=== PATIENT | female | born 1970 | race Caucasian/White ===

== ENCOUNTER 2016-12-15 11:26 | Emergency (ER) | payer OTHER, MEDICAID ==
[2016-12-15] MEDS ORDERED: NS 1,000 ML IV ONE ×2 (14:10→15:31)
[2016-12-15] MEDS ORDERED: ONDANSETRON 4 MG/2 ML VIAL IVP ONE ×2 (14:10→15:31)
--- NOTE | 2016-12-15 14:13 | EDPHY ---
H & P Time Seen by Provider: 12/15/16 14:08 HPI/ROS: CHIEF COMPLAINT: Nausea, vomiting, diarrhea, abdominal pain HISTORY OF PRESENT ILLNESS: This patient is a 46 year old female with history of intractable epilepsy complaining of nausea, vomiting, diarrhea, and abdominal pain onset two nights ago. She has not been able to take her usual medications, Keppra and Lyrica, today. Yesterday, she developed nausea and diarrhea with associated abdominal cramping. She began vomiting began yesterday evening, and has not been able to stop. Associated with low grade fever. This morning, she developed cramping in her lower back as well. She denies recent antibiotic use. No ill contacts. REVIEW OF SYSTEMS: Constitutional: No fever, no chills Eyes: No visual changes ENT: No sore throat Respiratory: No cough, no shortness of breath Cardiac: No chest pain Gastrointestinal: No nausea, no vomiting, no abdominal pain Genitourinary: No hematuria, no dysuria Musculoskeletal: No leg pain or swelling Skin: No rash Neurological: No headache, no numbness, no weakness Psychiatric: No depression Past Medical/Surgical History: 1. Intractable epilepsy 2. Cholecystectomy 3. Fibromyalgia Social History: Lives in [place]. . Former smoker. Smoking Status: Former smoker Physical Exam: General Appearance: Alert, no distress Eyes: Pupils equal and round, no conjunctival pallor or injection ENT, Mouth: Mucous membranes moist Neck: Normal inspection Respiratory: Lungs are clear to auscultation Cardiovascular: Regular rate and rhythm. 2/6 systolic murmur. Gastrointestinal: Abdomen is soft and non- tender Neurological: A&O, nonfocal, normal gait Skin: Warm and dry, no rash Extremities: Nontender, no pedal edema Psychiatric: Mood and affect normal Constitutional: Initial Vital Signs Temperature (C) 37 C 12/15/16 11:38 Heart Rate 76 12/15/16 11:38 Respiratory Rate 18 12/15/16 11:38 Blood Pressure 122/70 H 12/15/16 11:38 O2 Sat (%) 96 12/15/16 11:38 O2 Delivery Mode Room Air Allergies/Adverse Reactions: lamotrigine [From Lamictal] Allergy (Severe, Verified 12/15/16 11:37) Unknown divalproex sodium [From Depakote] Allergy (Mild, Verified 12/15/16 11:37) Hives oxcarbazepine [From Trileptal] Allergy (Mild, Verified 12/15/16 11:37) Unknown Penicillins Allergy (Mild, Verified 12/15/16 11:37) Swelling/neck,face,throat Home Medications: Medication Instructions Recorded Keppra 09/09/09 LYRICA 03/24/14 EPINEPHrine [Epipen 0.3 MG (RX)] 0.3 mg IM ONCE PRN #1 syr 05/14/14 Buspar (*) 12/15/16 Ondansetron Odt [Zofran Odt 4 mg 4 mg PO Q4 PRN #6 tab 12/15/16 (*)] Viibryd 12/15/16 Medical Decision Making ED Course/Re-evaluation: The patient generally takes 2500mg Keppra bid but had not been able to today due to vomiting. Plan to administer 1gm IV Keppra for seizure prevention. IV normal saline 1 L IV and Zofran 4 mg IV given for nausea and vomiting. The patient continued to feel slightly nauseated after the initial IV Zofran so a 2nd dose of Zofran 4 mg IV given. Toradol 15 mg IV given for headache and abdominal cramping. The patient was able to tolerate ice chips well and feels better, wants to go home. Abdominal exam remains benign. Differential Diagnosis: Differential diagnosis includes though it is not limited to appendicitis, cholecystitis, diverticulitis, pyelonephritis, bowel perforation, small bowel obstruction. - Data Points Laboratory Results: Laboratory Results 12/15/16 14:00 12/15/16 14:00 12/15/16 12/15/16 14:00 14:00 WBC 6.08 10^3/uL 10^3/uL (3.80-9.50) RBC 4.15 10^6/uL L 10^6/uL (4.18-5.33) Hgb 13.0 g/dL g/dL (12.6-16.3) Hct 37.8 % L % (38.0-47.0) MCV 91.1 fL fL (81.5-99.8) MCH 31.3 pg pg (27.9-34.1) MCHC 34.4 g/dL g/dL (32.4-36.7) RDW 12.6 % % (11.5-15.2) Plt Count 252 10^3/uL 10^3/uL (150-400) MPV 9.4 fL fL (8.7-11.7) Neut % (Auto) 72.2 % % (39.3-74.2) Lymph % (Auto) 21.9 % % (15.0-45.0) Mcleod % (Auto) 3.8 % L % (4.5-13.0) Eos % (Auto) 1.2 % % (0.6-7.6) Baso % (Auto) 0.7 % % (0.3-1.7) Nucleat RBC Rel Count 0.0 % % (0.0-0.2) Absolute Neuts (auto) 4.40 10^3/uL 10^3/uL (1.70-6.50) Absolute Lymphs (auto) 1.33 10^3/uL 10^3/uL (1.00-3.00) Absolute Monos (auto) 0.23 10^3/uL L 10^3/uL (0.30-0.80) Absolute Eos (auto) 0.07 10^3/uL 10^3/uL (0.03-0.40) Absolute Basos (auto) 0.04 10^3/uL 10^3/uL (0.02-0.10) Absolute Nucleated RBC 0.00 10^3/uL 10^3/uL (0-0.01) Immature Gran % 0.2 % % (0.0-1.1) Immature Gran # 0.01 10^3/uL 10^3/uL (0.00-0.10) Sodium 140 mEq/L mEq/L (134-144) Potassium 4.2 mEq/L mEq/L (3.5-5.2) Chloride 110 mEq/L mEq/L (97-110) Carbon Dioxide 20 mEq/l L mEq/l (22-31) Anion Gap 10 mEq/L mEq/L (8-16) BUN 9 mg/dL mg/dL (7-23) Creatinine 0.6 mg/dL mg/dL (0.6-1.0) Estimated GFR > 60 Glucose 88 mg/dL mg/dL (70-100) Calcium 9.1 mg/dL mg/dL (8.5-10.4) Medications Given: Discontinued Medications Sodium Chloride (Ns) 1,000 mls @ 0 mls/hr IV EDNOW ONE; Wide Open PRN Reason: Protocol Stop: 12/15/16 14:11 Last Admin: 12/15/16 14:19 Dose: 1,000 mls Levetiracetam 1,000 mg/ Sodium (Chloride) 110 mls @ 440 mls/hr IV EDNOW ONE Stop: 12/15/16 14:38 Last Admin: 12/15/16 14:52 Dose: 110 mls Sodium Chloride (Ns) 1,000 mls @ 0 mls/hr IV ONCE ONE; Wide Open PRN Reason: Protocol Stop: 12/15/16 15:32 Last Admin: 12/15/16 15:44 Dose: 1,000 mls Ketorolac Tromethamine (Toradol) 15 mg IVP EDNOW ONE Stop: 12/15/16 15:32 Last Admin: 12/15/16 15:43 Dose: 15 mg Ondansetron HCl (Zofran) 4 mg IVP EDNOW ONE Stop: 12/15/16 14:11 Last Admin: 12/15/16 14:19 Dose: 4 mg Ondansetron HCl (Zofran) 4 mg IVP EDNOW ONE Stop: 12/15/16 15:32 Last Admin: 12/15/16 15:44 Dose: 4 mg Departure - Departure Disposition: Home, Routine, Self-Care Clinical Impression: Acute gastroenteritis Condition: Good Instructions: Gastroenteritis (ED) Additional Instructions: 1. Follow up with your primary care physician in the next 1-2 days. 2. Take Zofran as prescribed as needed for nausea. 3. Stay well hydrated. 4. Return for uncontrollable vomiting, diarrhea, worsening abdominal pain, fever , or other worsening of condition. Referrals: Nette Beebe MD [Medical Doctor] - As per Instructions Prescriptions: Ondansetron Odt [Zofran Odt 4 mg (*)] 4 mg PO Q4 PRN #6 tab PRN Reason: Nausea Report Scribed for: Heidi Daniels Report Scribed by: Griselda Bush Date of Report: 12/15/16 Time of Report: 14:11 Physician Review and Approval Statement: 12/15/16 14:11 Portions of this note were transcribed by a medical assisting program director. I personally performed a history, physical exam, medical decision making, and confirmed accuracy of information the transcribed note.
[2016-12-15] MEDS ORDERED: levETIRAcetam 1,000 MG in NS 100 ML IV ONE (14:24)
[2016-12-15 14:34] LABS: % IMMATURE GRANULYOCYTES 0.2 % (0.0-1.1); ABSOLUTE IMMATURE GRANULOCYTES 0.01 10^3/uL (0.00-0.10); ADD DIFF? NO; ADD MORPH? NO; ADD SCAN? NO; ATYPICAL LYMPHOCYTE FLAG 0 (0-99); FRAGMENT RBC FLAG 30 (0-99); HEMATOCRIT 37.8 % (38.0-47.0); LEFT SHIFT FLG 0 (0-99); LIPEMIA HEMOLYSIS FLAG 90 (0-99); MEAN CELL HEMOGLOBIN 31.3 pg (27.9-34.1); MEAN CELL HEMOGLOBIN CONCENTR. 34.4 g/dL (32.4-36.7); MEAN CELL VOLUME 91.1 fL (81.5-99.8); MEAN PLATELET VOLUME 9.4 fL (8.7-11.7); PLATELET CLUMPS FLAG 10 (0-99); PLATELET COUNT 252 10^3/uL (150-400); RED BLOOD CELL COUNT 4.15 10^6/uL (4.18-5.33); RED CELL DISTRIBUTION WIDTH 12.6 % (11.5-15.2)
[2016-12-15 14:39] LABS: ANION GAP 10 mEq/L (8-16); CALCIUM 9.1 mg/dL (8.5-10.4); CARBON DIOXIDE 20 mEq/l (22-31); CHLORIDE 110 mEq/L (97-110); CREATININE 0.6 mg/dL (0.6-1.0); GLOMERULAR FILTRATION RATE > 60; GLUCOSE 88 mg/dL (70-100); POTASSIUM 4.2 mEq/L (3.5-5.2); SODIUM 140 mEq/L (134-144)
[2016-12-15] MEDS ORDERED: KETOROLAC 15 MG/1 ML SDV IVP ONE (15:31)
[2016-12-15 16:24] VITALS: PULSE 68; RESP 20; O2SAT 95
[2016-12-15 16:25] VITALS: BP 133/78; TEMP 98.6
== END 2016-12-15 16:25 | disposition home or self-care (01) ==
DX: K52.9 Noninfective gastroenteritis and colitis, unspecified (principal); E86.9 Volume depletion, unspecified; Z87.891 Personal history of nicotine dependence; Z90.49 Acquired absence of other specified parts of digestive tract
CPT/HCPCS: 96361; 96365; 96375; 96376; 99284; J1885; J1953; J2405

== ENCOUNTER 2017-03-21 08:49 | Emergency (ER) | payer OTHER, MEDICAID ==
--- NOTE | 2017-03-21 08:57 | EDPHY ---
H & P Time Seen by Provider: 03/21/17 08:57 HPI/ROS: CHIEF COMPLAINT: Nausea and abdominal pain HISTORY OF PRESENT ILLNESS: The patient is a 46 y/o female arriving via EMS complaining of nausea and abdominal pain. She has a history of epilepsy, fibromyalgia, and a prior kidney stone surgery. Her pain is present throughout her abdomen, but worse in the lower left quadrant. She describes it as constant and dull. She has associated left flank pain and hot sweats. She denies dysuria , polyuria, diarrhea, constipation, and vomiting. She has not taken anything for her symptoms, but received Zofran en route. Her last seizure was about 3 weeks ago. She has had a mild cough recently since switching from Ativan to inhaled CBD under the direction of her neurologist. REVIEW OF SYSTEMS: A ten point review of systems was performed and is negative with the exception of the items mentioned in the HPI. Past medical history: Epilepsy with complex partial and absence seizures - Keppra 2500mg AM and 2000mg PMy, fibromyalgia Past surgical history: Cholecystectomy, kidney stone surgery Family history: Noncontributory Social history: Lives in [place]. . PCP: [facility]. Neurologist : Dr. Castro General Appearance: Alert. Vital signs reviewed. Eyes: Pupils equal and round, no conjunctival injection, no discharge. Anicteric. ENT, Mouth: Mucous membranes are moist, no oropharyngeal erythema or edema. Neck: No lymphadenopathy, supple. Respiratory: Lungs are clear to auscultation; no wheezes, rales, or rhonchi. Cardiovascular: Regular rate and rhythm; no murmur, rub, or gallop. Gastrointestinal: Abdomen is soft, LLQ tenderness without guarding, no masses or organomegaly, bowel sounds normal. Skin: Warm and dry, no rashes on exposed skin, normal color. Back: Nontender to palpation over the thoracolumbar spine. Mild left CVAT. Extremities: No lower extremity edema, no calf tenderness or swelling. Neurological: Alert and oriented. Moving all four extremities easily and equally. Psychiatric: Normal affect. - Personal History Tetanus Vaccine Date: 2 YEARS AGO - Medical/Surgical History Hx Asthma: No Hx Chronic Respiratory Disease: No Hx Diabetes: No Hx Cardiac Disease: No Hx Renal Disease: No Hx Cirrhosis: No Hx Alcoholism: No Hx HIV/AIDS: No Hx Splenectomy or Spleen Trauma: No Other PMH: INTRACTABLE EPILEPSY, CHOLECYSTECTOMY - Social History Smoking Status: Former smoker Constitutional: Initial Vital Signs Temperature (C) 37 C 03/21/17 08:58 Heart Rate 62 03/21/17 08:58 Respiratory Rate 16 03/21/17 08:58 Blood Pressure 124/73 H 03/21/17 08:58 O2 Sat (%) 99 03/21/17 08:58 O2 Delivery Mode Room Air Allergies/Adverse Reactions: lamotrigine [From Lamictal] Allergy (Severe, Verified 12/15/16 11:37) Unknown divalproex sodium [From Depakote] Allergy (Mild, Verified 12/15/16 11:37) Hives oxcarbazepine [From Trileptal] Allergy (Mild, Verified 12/15/16 11:37) Unknown Penicillins Allergy (Mild, Verified 12/15/16 11:37) Swelling/neck,face,throat Home Medications: Medication Instructions Recorded Keppra 09/09/09 LYRICA 03/24/14 EPINEPHrine [Epipen 0.3 MG (RX)] 0.3 mg IM ONCE PRN #1 syr 05/14/14 Buspar (*) 12/15/16 Ondansetron Odt [Zofran Odt 4 mg 4 mg PO Q4 PRN #6 tab 12/15/16 (*)] Viibryd 12/15/16 Ondansetron Odt [Zofran Odt 4 mg 4 mg PO Q4 PRN #10 tab 03/21/17 (RX)] Medical Decision Making - Diagnostics Imaging: Discussed imaging studies w/ milled rice broker Radiologist ED Course/Re-evaluation: This is a 46 y/o female who presents with LLQ and left flank tenderness. She has declined pain medication. IV established. Labs and UA ordered. 1L IV NS administered. 0957: Reassessed patient. Her pain is more on her left flank now. Her nausea is about the same. She has been unable to provide a urine sample yet. 1029: UA is normal. 15mg IV Toradol administered for pain. Pelvic US ordered. 1111: 0.5mg IV Dilaudid and 4mg IV Zofran administered. White blood cell count is normal. Urinalysis does not show evidence of an infection. She does not have blood in her urine and although this does not rule out a kidney stone, the nature of her pain is not suggestive of ureterolithiasis. I do not suspect diverticulitis. 1223: Reassessed patient. She is feeling improved. US results pending. 1329: Reassessed patient. She has a small right ovarian cyst that is unlikely to be causing her symptoms as her pain has been primarily on the left. She is feeling much better and has been able to tolerate PO fluids without difficulty. She feels ready to go home. I've recommended following up [place] [facility] [place] She agrees with this plan. Strict return precautions discussed. - Data Points Laboratory Results: Laboratory Results 03/21/17 Unknown 03/21/17 Unknown Medications Given: Discontinued Medications Hydromorphone HCl (Dilaudid) 0.5 mg IVP EDNOW ONE Stop: 03/21/17 11:11 Last Admin: 03/21/17 11:13 Dose: 0.5 mg Sodium Chloride (Ns) 1,000 mls @ 0 mls/hr IV EDNOW ONE; Wide Open PRN Reason: Protocol Stop: 03/21/17 09:10 Last Admin: 03/21/17 09:24 Dose: 1,000 mls Ketorolac Tromethamine (Toradol) 15 mg IVP EDNOW ONE Stop: 03/21/17 10:29 Last Admin: 03/21/17 10:31 Dose: 15 mg Ondansetron HCl (Zofran) 4 mg IVP EDNOW ONE Stop: 03/21/17 11:22 Last Admin: 03/21/17 11:23 Dose: 4 mg Ondansetron HCl (Zofran) 4 mg IVP EDNOW ONE Stop: 03/21/17 13:34 Last Admin: 03/21/17 13:40 Dose: 4 mg Departure - Departure Disposition: Home, Routine, Self-Care Clinical Impression: Right ovarian cyst Abdominal pain Qualifiers: Abdominal location: left lower quadrant Qualified Code(s): R10.32 - Left lower quadrant pain Condition: Good Instructions: Ondansetron (By mouth), Acute Abdominal Pain (ED) Additional Instructions: 1. Take Zofran as prescribed when needed for nausea or vomiting. 2. Follow up with your primary care provider this week. 3. Return to the ED for pain that moves to a different location, uncontrollable vomiting, fever, lightheadedness, or other worsening of condition. Referrals: [facility] [Outside] - As per Instructions Prescriptions: Ondansetron Odt [Zofran Odt 4 mg (RX)] 4 mg PO Q4 PRN #10 tab PRN Reason: nausea Report Scribed for: Susanna Warner Report Scribed by: Miriam Ellis Date of Report: 03/21/17 Time of Report: 09:06 Physician Review and Approval Statement: 03/21/17 08:57 Portions of this note were transcribed by the medical practitioners. I, Dr. Susanna Warner, personally performed the history, physical exam, and medical decision- making; and confirmed the accuracy of the information in the transcribed note.
[2017-03-21 09:00] VITALS: TEMP 98.6
[2017-03-21] MEDS ORDERED: NS 1,000 ML IV ONE (09:09)
[2017-03-21 09:13] LABS: % IMMATURE GRANULYOCYTES 0.2 % (0.0-1.1); ABSOLUTE IMMATURE GRANULOCYTES 0.01 10^3/uL (0.00-0.10); ADD DIFF? NO; ADD MORPH? NO; ADD SCAN? NO; ATYPICAL LYMPHOCYTE FLAG 10 (0-99); FRAGMENT RBC FLAG 0 (0-99); HEMATOCRIT 42.6 % (38.0-47.0); HEMOGLOBIN 14.8 g/dL (12.6-16.3); LEFT SHIFT FLG 0 (0-99); LIPEMIA HEMOLYSIS FLAG 90 (0-99); MEAN CELL HEMOGLOBIN 31.1 pg (27.9-34.1); MEAN CELL HEMOGLOBIN CONCENTR. 34.7 g/dL (32.4-36.7); MEAN CELL VOLUME 89.5 fL (81.5-99.8); MEAN PLATELET VOLUME 8.8 fL (8.7-11.7); PLATELET CLUMPS FLAG 20 (0-99); PLATELET COUNT 235 10^3/uL (150-400); RED BLOOD CELL COUNT 4.76 10^6/uL (4.18-5.33); RED CELL DISTRIBUTION WIDTH 12.4 % (11.5-15.2)
[2017-03-21 09:21] LABS: ANION GAP 14 mEq/L (8-16); CALCIUM 9.7 mg/dL (8.5-10.4); CARBON DIOXIDE 22 mEq/l (22-31); CHLORIDE 108 mEq/L (97-110); CREATININE 0.6 mg/dL (0.6-1.0); GLOMERULAR FILTRATION RATE > 60; GLUCOSE 108 mg/dL (70-100); POTASSIUM 3.9 mEq/L (3.5-5.2); SODIUM 144 mEq/L (134-144)
[2017-03-21] MEDS ORDERED: KETOROLAC 15 MG/1 ML SDV IVP ONE (10:28)
[2017-03-21 10:48] LABS: COLOR YELLOW; LEUKOCYTE ESTERASE,URINE NEGATIVE (NEGATIVE); NITRITE,URINE NEGATIVE (NEGATIVE)
[2017-03-21] MEDS ORDERED: HYDROmorphONE/DILAUDID 1 MG/ML INJ IVP ONE (11:10)
[2017-03-21] MEDS ORDERED: ONDANSETRON 4 MG/2 ML VIAL IVP ONE ×2 (11:21→13:33)
[2017-03-21 13:23] VITALS: BP 102/60; PULSE 73; RESP 16; O2SAT 96
== END 2017-03-21 13:53 | disposition home or self-care (01) ==
LOC: EDUNIT#
DX: N83.201 Unspecified ovarian cyst, right side (principal); E86.9 Volume depletion, unspecified; Z87.891 Personal history of nicotine dependence; Z90.49 Acquired absence of other specified parts of digestive tract
CPT/HCPCS: 76856; 96361; 96374; 96375; 96376; 99285; J1170; J1885; J2405

== ENCOUNTER 2017-04-03 21:58 | Emergency (ER) | payer OTHER, MEDICAID ==
[2017-04-03] MEDS ORDERED: NS 1,000 ML IV ONE (22:23)
[2017-04-03] MEDS ORDERED: ONDANSETRON 4 MG/2 ML VIAL IVP ONE (22:23)
[2017-04-03] MEDS ORDERED: LIDOCAINE 1% 100 MG in NS 100 ML IV ONE (22:24)
--- NOTE | 2017-04-03 22:27 | EDPHY ---
H & P Stated Complaint: abd pain Time Seen by Provider: 04/03/17 22:08 HPI/ROS: HPI The patient presents with abdominal pain which has been present for the last 4 hours and started slowly. It is in her right lower quadrant and radiates deep into her pelvis. It is associated with a feeling of dizziness and fatigue. At about 5:30 p.m., she took ibuprofen 600 mg without any improvement in her symptoms. She says she finished her menses about 2 days ago. She denies any vaginal discharge. She says the pain feels similar to when she was seen in the emergency department on March 21. Then she was diagnosed with a small right-sided ovarian cyst with an otherwise normal workup. She said the pain at that time lasted for about 5 days and then spontaneously improved. She does not have any fevers, nausea, vomiting, diarrhea, dysuria, hematuria. She had a normal bowel movement earlier today. She is followed by a primary care doctor, though does not have an OBGYN.. REVIEW OF SYSTEMS Constitutional: No fever, no chills. Eyes: No discharge. ENT: No sore throat. Cardiovascular: No chest pain, no palpitations. Respiratory: No cough, no shortness of breath. Gastrointestinal: Positive for abdominal pain, no vomiting. Genitourinary: No hematuria. Musculoskeletal: No back pain. Skin: No rashes. Neurological: No headache. PMHx: Epilepsy, fibromyalgia, status post cholecystectomy, recent visit for abdominal pain Soc Hx: Here with her PHYSICAL General Appearance: Alert, no distress Eyes: Pupils equal and round no pallor or injection ENT, Mouth: Mucous membranes moist Respiratory: There are no retractions, lungs are clear to auscultation Cardiovascular: Regular rate and rhythm Gastrointestinal: Abdomen is soft with tenderness in the right lower quadrant with voluntary guarding Neurological: A&O, moves all extremities Skin: Warm and dry, no rashes Musculoskeletal: Neck is supple non tender Extremities: symmetrical, full range of motion Psychiatric: Patient is oriented X 3, there is no agitation Source: Patient, Old records Exam Limitations: No limitations - Personal History LMP (Females 10-55): 1-7 Days Ago Current Tetanus/Diphtheria Vaccine: Yes Current Tetanus Diphtheria and Acellular Pertussis (TDAP): Yes Tetanus Vaccine Date: 2 YEARS AGO - Medical/Surgical History Hx Asthma: No Hx Chronic Respiratory Disease: No Hx Diabetes: No Hx Cardiac Disease: No Hx Renal Disease: No Hx Cirrhosis: No Hx Alcoholism: No Hx HIV/AIDS: No Hx Splenectomy or Spleen Trauma: No Other PMH: INTRACTABLE EPILEPSY, CHOLECYSTECTOMY - Social History Smoking Status: Former smoker Constitutional: Initial Vital Signs Temperature (C) 37 C 04/03/17 22:00 Heart Rate 70 04/03/17 22:00 Respiratory Rate 16 04/03/17 22:00 Blood Pressure 105/60 04/03/17 22:00 O2 Sat (%) 96 04/03/17 22:00 O2 Delivery Mode Room Air Allergies/Adverse Reactions: lamotrigine [From Lamictal] Allergy (Severe, Verified 12/15/16 11:37) Unknown divalproex sodium [From Depakote] Allergy (Mild, Verified 12/15/16 11:37) Hives oxcarbazepine [From Trileptal] Allergy (Mild, Verified 12/15/16 11:37) Unknown Penicillins Allergy (Mild, Verified 12/15/16 11:37) Swelling/neck,face,throat Home Medications: Medication Instructions Recorded Keppra 09/09/09 LYRICA 03/24/14 EPINEPHrine [Epipen 0.3 MG (RX)] 0.3 mg IM ONCE PRN #1 syr 05/14/14 Buspar (*) 12/15/16 Ondansetron Odt [Zofran Odt 4 mg 4 mg PO Q4 PRN #6 tab 12/15/16 (*)] Viibryd 12/15/16 Ondansetron Odt [Zofran Odt 4 mg 4 mg PO Q4 PRN #10 tab 03/21/17 (RX)] Medical Decision Making - Diagnostics Imaging Results: Imaging Impressions Pelvic/Renal Ultrasound 04/03/17 22:23 Impression: 1. Normal ovaries. No ovarian cyst, free fluid, or torsion. 2. Well positioned intrauterine device. Findings discussed with Emergency Department physician, Deandra Mariano MD at 04/03/2017 23:46. Differential Diagnosis: 46-year-old female with fibromyalgia, epilepsy, status post cholecystectomy presents with several hours of right lower quadrant abdominal pain associated with dizziness with radiates to her pelvis. Recent visit demonstrated small right-sided ovarian cyst. Differential diagnosis includes large ovarian cyst, ovarian torsion, ruptured ovarian cyst, less likely appendicitis. In the emergency department, the patient was monitored for several hours. She had some improvement in her pain with pain medication and antiemetics. She was given IV fluids for presumed volume depletion. She also had basic lab testing which was unremarkable. Ultrasound was performed and demonstrated no ovarian cyst. I have explained these results to the patient. I am not worried about appendicitis given that she has no leukocytosis, vomiting, fever. The cause of the patient's pain is not clear at this point. Constipation is a consideration, however she is having normal bowel movements. I have explained to her that there is diagnostic uncertainty and because of this she should have a low threshold to return to the emergency department. I will give her follow- up information for OBGYN as well given the cyclical lower abdominal pain. She is in agreement with this plan. She will get a dose of Toradol before she is discharged. - Data Points Laboratory Results: Laboratory Results 04/03/17 22:18 04/03/17 22:18 04/03/17 04/03/17 04/03/17 22:18 22:18 22:18 WBC 5.88 10^3/uL 10^3/uL (3.80-9.50) RBC 4.29 10^6/uL 10^6/uL (4.18-5.33) Hgb 13.4 g/dL g/dL (12.6-16.3) Hct 38.8 % % (38.0-47.0) MCV 90.4 fL fL (81.5-99.8) MCH 31.2 pg pg (27.9-34.1) MCHC 34.5 g/dL g/dL (32.4-36.7) RDW 12.5 % % (11.5-15.2) Plt Count 245 10^3/uL 10^3/uL (150-400) MPV 8.6 fL L fL (8.7-11.7) Neut % (Auto) 44.8 % % (39.3-74.2) Lymph % (Auto) 39.8 % % (15.0-45.0) Patrick % (Auto) 5.4 % % (4.5-13.0) Eos % (Auto) 8.8 % H % (0.6-7.6) Baso % (Auto) 1.2 % % (0.3-1.7) Nucleat RBC Rel Count 0.0 % % (0.0-0.2) Absolute Neuts (auto) 2.63 10^3/uL 10^3/uL (1.70-6.50) Absolute Lymphs (auto) 2.34 10^3/uL 10^3/uL (1.00-3.00) Absolute Monos (auto) 0.32 10^3/uL 10^3/uL (0.30-0.80) Absolute Eos (auto) 0.52 10^3/uL H 10^3/uL (0.03-0.40) Absolute Basos (auto) 0.07 10^3/uL 10^3/uL (0.02-0.10) Absolute Nucleated RBC 0.00 10^3/uL 10^3/uL (0-0.01) Immature Gran % 0.0 % % (0.0-1.1) Immature Gran # 0.00 10^3/uL 10^3/uL (0.00-0.10) Sodium 139 mEq/L mEq/L (134-144) Potassium 3.7 mEq/L mEq/L (3.5-5.2) Chloride 102 mEq/L mEq/L (97-110) Carbon Dioxide 23 mEq/l mEq/l (22-31) Anion Gap 14 mEq/L mEq/L (8-16) BUN 8 mg/dL mg/dL (7-23) Creatinine 0.7 mg/dL mg/dL (0.6-1.0) Estimated GFR > 60 Glucose 108 mg/dL H mg/dL (70-100) Calcium 9.4 mg/dL mg/dL (8.5-10.4) Beta HCG, Qual NEGATIVE Medications Given: Discontinued Medications Sodium Chloride (Ns) 1,000 mls @ 0 mls/hr IV EDNOW ONE; Wide Open PRN Reason: Protocol Stop: 04/03/17 22:24 Last Admin: 04/03/17 23:02 Dose: 1,000 mls Lidocaine HCl 100 mg/ Sodium (Chloride) 110 mls @ 600 mls/hr IV EDNOW ONE Stop: 04/03/17 22:34 Last Admin: 04/03/17 23:01 Dose: 110 mls Ketamine HCl (Ketamine) 12.7 mg 0.2 mg/kg (12.7 mg) IVP EDNOW ONE Stop: 04/03/17 23:44 Last Admin: 04/04/17 00:02 Dose: Not Given Ketorolac Tromethamine (Toradol) 15 mg IVP EDNOW ONE Stop: 04/04/17 00:26 Last Admin: 04/04/17 00:27 Dose: 15 mg Ketorolac Tromethamine (Toradol) 15 mg IVP EDNOW ONE Stop: 04/04/17 00:14 Last Admin: 04/04/17 00:39 Dose: Not Given Ondansetron HCl (Zofran) 4 mg IVP EDNOW ONE Stop: 04/03/17 22:24 Last Admin: 04/03/17 23:02 Dose: 4 mg Departure - Departure Disposition: Home, Routine, Self-Care Clinical Impression: Lower abdominal pain Condition: Good Instructions: Abdominal Pain (ED) Additional Instructions: The cause of your pain is not entirely clear. Your ultrasound was normal today. If your pain becomes severe, associated with vomiting or fever, you should return to the emergency department. Otherwise I recommend that you take ibuprofen 600 mg with acetaminophen 650 mg every 6 hours as needed for pain. You can use an ice pack or heat if that helps. I have also referred you to an process chemist if you would like to see a specialist for this pain. You can follow up with your primary care doctor as well. Referrals: Jania Gar PA [Primary Care Provider] - As per Instructions Bri Perdomo MD [Medical Doctor] - As per Instructions
[2017-04-03 22:28] LABS: ADD DIFF? NO; ADD MORPH? NO; ADD SCAN? NO; ATYPICAL LYMPHOCYTE FLAG 0 (0-99); FRAGMENT RBC FLAG 0 (0-99); HEMATOCRIT 38.8 % (38.0-47.0); HEMOGLOBIN 13.4 g/dL (12.6-16.3); LEFT SHIFT FLG 0 (0-99); LIPEMIA HEMOLYSIS FLAG 90 (0-99); MEAN CELL HEMOGLOBIN 31.2 pg (27.9-34.1); MEAN CELL HEMOGLOBIN CONCENTR. 34.5 g/dL (32.4-36.7); MEAN CELL VOLUME 90.4 fL (81.5-99.8); MEAN PLATELET VOLUME 8.6 fL (8.7-11.7); PLATELET CLUMPS FLAG 0 (0-99); PLATELET COUNT 245 10^3/uL (150-400); RED BLOOD CELL COUNT 4.29 10^6/uL (4.18-5.33); RED CELL DISTRIBUTION WIDTH 12.5 % (11.5-15.2)
[2017-04-03 22:40] LABS: ANION GAP 14 mEq/L (8-16); CALCIUM 9.4 mg/dL (8.5-10.4); CARBON DIOXIDE 23 mEq/l (22-31); CHLORIDE 102 mEq/L (97-110); CREATININE 0.7 mg/dL (0.6-1.0); GLOMERULAR FILTRATION RATE > 60; GLUCOSE 108 mg/dL (70-100); POTASSIUM 3.7 mEq/L (3.5-5.2); SODIUM 139 mEq/L (134-144)
[2017-04-03] MEDS ORDERED: ONDANSETRON 4 MG/2 ML VIAL ONE (22:59)
[2017-04-03] MEDS ORDERED: KETAMINE 100 MG/10 ML SYR IVP ONE (23:43)
[2017-04-04] MEDS ORDERED: KETOROLAC 15 MG/1 ML SDV IVP ONE ×2 (00:13→00:25)
[2017-04-04] MEDS ORDERED: KETOROLAC 15 MG/1 ML SDV ONE (00:16)
[2017-04-04 00:36] VITALS: BP 101/59; PULSE 61; RESP 15; TEMP 97.9; O2SAT 97
== END 2017-04-04 00:40 | disposition home or self-care (01) ==
DX: R10.31 Right lower quadrant pain (principal); E86.9 Volume depletion, unspecified; Z90.49 Acquired absence of other specified parts of digestive tract; Z87.891 Personal history of nicotine dependence
CPT/HCPCS: 76856; J1885; J2405; 96365

== ENCOUNTER 2017-04-19 14:52 | Emergency (ER) | payer OTHER, MEDICAID ==
[2017-04-19 14:58] VITALS: RESP 16
--- NOTE | 2017-04-19 15:51 | EDPHY ---
H & P Stated Complaint: r sided abd/pelvic pain x 1 month/dx ovarian cyst/not resolving Time Seen by Provider: 04/19/17 15:51 HPI/ROS: HPI: This is a 46-year-old female presents with Chief Complaint: r sided abd/pelvic pain x 1 month/dx ovarian cyst/not resolving Location: Lower abdominal/pelvic Quality: Pain Duration: 1 month Signs and Symptoms: no fever, no nausea, no vomiting, no hematemesis, no blood in stool, no abdominal bloating, no diarrhea, no back pain, no urinary symptoms , no testicular/groin pain, no indigestion, no chest pain, no shortness of breath Timing: Sudden, constant, waxes and wanes Severity: Moderate to severe Context: Patient reports that she has had over a month of lower abdominal moderate to severe constant, radiating to the back pain. Due to the pain she has decreased appetite accompanied by nausea. She reports that she was in the ER over 1 month ago for the same symptoms. At that time they found an ovarian cyst. She followed up with a primary care provider 1 week later who ordered the CT abdomen and pelvis scan that showed that the cyst had resolved per patient and no other abnormalities. She says that the pain went away but has returned over the last week. Denies vomiting. Patient reports that she had diarrhea yesterday. She is passing flatus. Has an IUD. LMP 1-2 weeks ago. Last pelvic exam 1-2 weeks ago with PCP including Pap smear which was normal per patient. Denies any recent sexual activity in the last 2 months. Denies dyspareunia/vaginal bleeding/vaginal discharge. Denies urinary symptoms. Denies fevers, chills, blood in stool. She has not traveled outside the country or drink any water while camping. Modifying Factors: None Comment: ROS: see HPI Constitutional: No fever, no chills, no weight loss Eyes: No blurred vision Respiratory: No shortness of breath, no cough Cardiovascular: No chest pain, no palpitations Gastrointestinal: + nausea, no vomiting, no diarrhea, no hematemesis, no blood in stool Genitourinary: No dysuria, no blood in urine Extremities: No myalgias, no edema Neurologic: No weakness, no numbness Skin: No rashes, no petechiae Hematologic: No bruising, no bleeding MEDICAL/SURGICAL/SOCIAL HISTORY: Medical history: INTRACTABLE EPILEPSY Surgical history: CHOLECYSTECTOMY Social history: Employed. CONSTITUTIONAL: Pleasant, nontoxic-appearing white female, awake and alert, no obvious distress HEENT: Atraumatic and normocephalic, PERRL, EOMI. Tympanic membranes clear. Oropharynx clear, no exudate and moist pink mucosa. Airway patent. No lymphadenopathy. No meningismus. Cardiovascular: Normal S1/S2, regular rate, regular rhythm, without murmur rub or gallop. PULMONARY/CHEST: Symmetrical and nontender. Clear to auscultation bilaterally. Good air movement. No accessory muscle usage. ABDOMEN: Soft, nondistended, lower abdominal moderate tenderness, no rebound, no guarding, no peritoneal signs, no masses or organomegaly. No CVAT. EXTREMITIES: 2/2 pulses, strength 5/5, no deformities, no clubbing, no cyanosis or edema. NEUROLOGICAL: no focal neuro deficits. GCS 15. SKIN: Warm and dry, no erythema. no rash. Good capillary refill. Source: Patient Exam Limitations: No limitations - Personal History LMP (Females 10-55): 8-14 Days Ago Current Tetanus/Diphtheria Vaccine: Yes Tetanus Vaccine Date: 2 YEARS AGO - Medical/Surgical History Hx Asthma: No Hx Chronic Respiratory Disease: No Hx Diabetes: No Hx Cardiac Disease: No Hx Renal Disease: No Hx Cirrhosis: No Hx Alcoholism: No Hx HIV/AIDS: No Hx Splenectomy or Spleen Trauma: No Other PMH: INTRACTABLE EPILEPSY, CHOLECYSTECTOMY - Social History Smoking Status: Former smoker Constitutional: Initial Vital Signs Temperature (C) 36.9 C 04/19/17 14:55 Heart Rate 72 04/19/17 14:55 Respiratory Rate 16 04/19/17 14:55 Blood Pressure 106/80 04/19/17 14:55 O2 Sat (%) 97 04/19/17 14:55 O2 Delivery Mode Room Air Allergies/Adverse Reactions: lamotrigine [From Lamictal] Allergy (Severe, Verified 04/19/17 14:55) Unknown divalproex sodium [From Depakote] Allergy (Mild, Verified 04/19/17 14:55) Hives oxcarbazepine [From Trileptal] Allergy (Mild, Verified 04/19/17 14:55) Unknown Penicillins Allergy (Mild, Verified 04/19/17 14:55) Swelling/neck,face,throat Home Medications: Medication Instructions Recorded Keppra 09/09/09 LYRICA 03/24/14 EPINEPHrine [Epipen 0.3 MG (RX)] 0.3 mg IM ONCE PRN #1 syr 05/14/14 Buspar (*) 12/15/16 Ondansetron Odt [Zofran Odt 4 mg 4 mg PO Q4 PRN #6 tab 12/15/16 (*)] Viibryd 12/15/16 Ondansetron Odt [Zofran Odt 4 mg 4 mg PO Q4 PRN #10 tab 03/21/17 (RX)] Dicyclomine [Bentyl 10 MG (*)] 10 mg PO QID PRN #12 cap 04/19/17 Polyethylene Glycol 3350 [Miralax 17 gm PO DAILY #10 pkt 04/19/17 17 gm (*)] Medical Decision Making - Diagnostics Imaging Results: Imaging Impressions Abdomen CT 04/19/17 16:05 Impression: 1. Status post cholecystectomy with mild intra and extrahepatic biliary ductal prominence, similar to a study in 2015, likely reflecting a reservoir-type effect. 2. Nonobstructive left nephrolithiasis with some cortical scarring along the posterior [id number] interpolar region of the left kidney, and trace subcapsular fluid but no hydronephrosis. 3. Moderate constipation. 4. Appropriately-positioned intrauterine device. 5. There is no adnexal mass or free fluid. Findings were discussed with Sveta Glover PA-C at 17:59, on 04/19/2017. ED Course/Re-evaluation: Labs, IV fluids, IV medications, CT abdomen and pelvis scan ordered Chart review shows that pelvic ultrasound on 04/03/2017 showed an IUD in place and no other abnormalities. CT abdomen and pelvis scan showed 2.4 cm left adnexal cyst with diffuse mild colonic thickening that was questionable for colitis at that time. Patient is nontoxic in appearance and afebrile. No lactic acidosis. Given 1 L normal saline and IV Zofran Urinalysis shows no signs of infection Discussed pelvic exam with patient who is adamant that we do not perform in the emergency room as she had a pelvic performed approximately 1-2 weeks ago. She feels that the symptoms are not related and does not require another pelvic exam. She denies being currently sexually active. 1802: Called by radiologist who advised that CT abdomen and pelvis scan shows moderate constipation, IUD in place, no cyst from prior CT seen, status post cholecystectomy, no signs of appendicitis, colitis, obstruction, diverticulitis. This patient was seen under the supervision of my secondary supervising physician. I evaluated care for this patient independently. Patient's presentation, labs/imaging, treatment and plan of care were discussed with secondary supervising physician. Differential Diagnosis: Abdominal pain in a female including but not limited to ovarian cyst, pelvic inflammatory disease, ovarian torsion, urinary tract infection, and appendicitis. - Data Points Laboratory Results: Laboratory Results 04/19/17 15:57 04/19/17 15:57 04/19/17 04/19/17 04/19/17 17:35 17:30 15:57 WBC RBC Hgb Hct MCV MCH MCHC RDW Plt Count MPV Neut % (Auto) Lymph % (Auto) [place] % (Auto) Eos % (Auto) Baso % (Auto) Nucleat RBC Rel Count Absolute Neuts (auto) Absolute Lymphs (auto) Absolute Monos (auto) Absolute Eos (auto) Absolute Basos (auto) Absolute Nucleated RBC Immature Gran % Immature Gran # VBG Lactic Acid 0.6 mmol/L L mmol/L (0.7-2.1) Sodium Potassium Chloride Carbon Dioxide Anion Gap BUN Creatinine Estimated GFR Glucose Calcium Total Bilirubin Conjugated Bilirubin Unconjugated Bilirubin AST ALT Alkaline Phosphatase Total Protein Albumin Lipase Beta HCG, Qual NEGATIVE Urine Color PALE YELLOW Urine Appearance CLEAR Urine pH 6.0 (5.0-7.5) Ur Specific [place] 1.032 H (1.002-1.030) Urine Protein NEGATIVE (NEGATIVE) Urine Ketones NEGATIVE (NEGATIVE) Urine Blood NEGATIVE (NEGATIVE) Urine Nitrate NEGATIVE (NEGATIVE) Urine Bilirubin NEGATIVE (NEGATIVE) Urine Urobilinogen NEGATIVE EU EU (0.2-1.0) Ur Leukocyte Esterase NEGATIVE (NEGATIVE) Urine Glucose NEGATIVE (NEGATIVE) 04/19/17 04/19/17 15:57 15:57 WBC 2.47 10^3/uL L 10^3/uL (3.80-9.50) RBC 4.27 10^6/uL 10^6/uL (4.18-5.33) Hgb 13.4 g/dL g/dL (12.6-16.3) Hct 38.2 % % (38.0-47.0) MCV 89.5 fL fL (81.5-99.8) MCH 31.4 pg pg (27.9-34.1) MCHC 35.1 g/dL g/dL (32.4-36.7) RDW 12.8 % % (11.5-15.2) Plt Count 181 10^3/uL 10^3/uL (150-400) MPV 8.8 fL fL (8.7-11.7) Neut % (Auto) 51.5 % % (39.3-74.2) Lymph % (Auto) 35.2 % % (15.0-45.0) [place] % (Auto) 9.3 % % (4.5-13.0) Eos % (Auto) 3.2 % % (0.6-7.6) Baso % (Auto) 0.4 % % (0.3-1.7) Nucleat RBC Rel Count 0.0 % % (0.0-0.2) Absolute Neuts (auto) 1.27 10^3/uL L 10^3/uL (1.70-6.50) Absolute Lymphs (auto) 0.87 10^3/uL L 10^3/uL (1.00-3.00) Absolute Monos (auto) 0.23 10^3/uL L 10^3/uL (0.30-0.80) Absolute Eos (auto) 0.08 10^3/uL 10^3/uL (0.03-0.40) Absolute Basos (auto) 0.01 10^3/uL L 10^3/uL (0.02-0.10) Absolute Nucleated RBC 0.00 10^3/uL 10^3/uL (0-0.01) Immature Gran % 0.4 % % (0.0-1.1) Immature Gran # 0.01 10^3/uL 10^3/uL (0.00-0.10) VBG Lactic Acid Sodium 141 mEq/L mEq/L (134-144) Potassium 3.8 mEq/L mEq/L (3.5-5.2) Chloride 106 mEq/L mEq/L (97-110) Carbon Dioxide 22 mEq/l mEq/l (22-31) Anion Gap 13 mEq/L mEq/L (8-16) BUN 8 mg/dL mg/dL (7-23) Creatinine 0.6 mg/dL mg/dL (0.6-1.0) Estimated GFR > 60 Glucose 89 mg/dL mg/dL (70-100) Calcium 8.5 mg/dL mg/dL (8.5-10.4) Total Bilirubin 0.2 mg/dL mg/dL (0.1-1.4) Conjugated Bilirubin 0.2 mg/dL mg/dL (0.0-0.5) Unconjugated Bilirubin 0.0 mg/dL mg/dL (0.0-1.1) AST 19 IU/L IU/L (14-46) ALT 31 IU/L IU/L (9-52) Alkaline Phosphatase 52 IU/L IU/L (38-126) Total Protein 6.5 g/dL g/dL (6.3-8.2) Albumin 4.1 g/dL g/dL (3.5-5.0) Lipase 97 IU/L IU/L (23-300) Beta HCG, Qual Urine Color Urine Appearance Urine pH Ur Specific [place] Urine Protein Urine Ketones Urine Blood Urine Nitrate Urine Bilirubin Urine Urobilinogen Ur Leukocyte Esterase Urine Glucose Medications Given: Discontinued Medications Sodium Chloride (Ns) 1,000 mls @ 0 mls/hr IV EDNOW ONE; Wide Open PRN Reason: Protocol Stop: 04/19/17 16:06 Last Admin: 04/19/17 16:18 Dose: 1,000 mls Morphine Sulfate (Morphine) 4 mg IVP EDNOW ONE Stop: 04/19/17 16:29 Last Admin: 04/19/17 16:45 Dose: 4 mg Ondansetron HCl (Zofran) 4 mg IVP EDNOW ONE Stop: 04/19/17 16:06 Last Admin: 04/19/17 16:19 Dose: 4 mg Departure - Departure Disposition: Home, Routine, Self-Care Clinical Impression: Lower abdominal pain, Constipation by delayed colonic transit Condition: Good Instructions: Irritable Bowel Syndrome (DC), Constipation (ED) Additional Instructions: Please drink a minimum of 8-10 glasses of water per day. Eat a diet high in fiber. Take MiraLax every day for the next 7 days and then daily as needed for normal soft bowel movements. Referrals: Jania Gar PA [Primary Care Provider] - As per Instructions Prescriptions: Dicyclomine [Bentyl 10 MG (*)] 10 mg PO QID PRN #12 cap PRN Reason: Pain, Moderate Polyethylene Glycol 3350 [Miralax 17 gm (*)] 17 gm PO DAILY #10 pkt
[2017-04-19] MEDS ORDERED: ONDANSETRON 4 MG/2 ML VIAL IVP ONE (16:05)
[2017-04-19] MEDS ORDERED: NS 1,000 ML IV ONE (16:05)
[2017-04-19 16:18] LABS: % IMMATURE GRANULYOCYTES 0.4 % (0.0-1.1); ABSOLUTE IMMATURE GRANULOCYTES 0.01 10^3/uL (0.00-0.10); ADD DIFF? NO; ADD MORPH? NO; ADD SCAN? NO; ATYPICAL LYMPHOCYTE FLAG 0 (0-99); FRAGMENT RBC FLAG 0 (0-99); HEMATOCRIT 38.2 % (38.0-47.0); HEMOGLOBIN 13.4 g/dL (12.6-16.3); LEFT SHIFT FLG 0 (0-99); LIPEMIA HEMOLYSIS FLAG 90 (0-99); MEAN CELL HEMOGLOBIN 31.4 pg (27.9-34.1); MEAN CELL HEMOGLOBIN CONCENTR. 35.1 g/dL (32.4-36.7); MEAN CELL VOLUME 89.5 fL (81.5-99.8); MEAN PLATELET VOLUME 8.8 fL (8.7-11.7); PLATELET CLUMPS FLAG 0 (0-99); PLATELET COUNT 181 10^3/uL (150-400); RED BLOOD CELL COUNT 4.27 10^6/uL (4.18-5.33); RED CELL DISTRIBUTION WIDTH 12.8 % (11.5-15.2)
[2017-04-19 16:23] LABS: ALANINE AMINOTRANSFERASE 31 IU/L (9-52); ALBUMIN 4.1 g/dL (3.5-5.0); ALKALINE PHOSPHATASE 52 IU/L (38-126); ANION GAP 13 mEq/L (8-16); ASPARTATE AMINOTRANSFERASE 19 IU/L (14-46); BILIRUBIN,TOTAL 0.2 mg/dL (0.1-1.4); BILIRUBIN-CONJUGATED 0.2 mg/dL (0.0-0.5); CALCIUM 8.5 mg/dL (8.5-10.4); CARBON DIOXIDE 22 mEq/l (22-31); CHLORIDE 106 mEq/L (97-110); CREATININE 0.6 mg/dL (0.6-1.0); GLOMERULAR FILTRATION RATE > 60; GLUCOSE 89 mg/dL (70-100); POTASSIUM 3.8 mEq/L (3.5-5.2); SODIUM 141 mEq/L (134-144); TOTAL PROTEIN 6.5 g/dL (6.3-8.2)
[2017-04-19] MEDS ORDERED: IOPAMIDOL (ISOVUE-300) 100 ML BTL ONE (16:55)
[2017-04-19 17:56] LABS: COLOR PALE YELLOW; LEUKOCYTE ESTERASE,URINE NEGATIVE (NEGATIVE); NITRITE,URINE NEGATIVE (NEGATIVE)
[2017-04-19 18:00] VITALS: O2SAT 98
[2017-04-19 18:20] VITALS: BP 135/62; PULSE 71; TEMP 97.9
== END 2017-04-19 18:20 | disposition home or self-care (01) ==
PROC: 3E0337Z Introduction of Electrolytic and Water Balance Substance into Peripheral Vein, Percutaneous Approach (ICD-10-PCS; principal; 2017-04-19)
DX: K59.00 Constipation, unspecified (principal); E86.9 Volume depletion, unspecified; Z87.891 Personal history of nicotine dependence; Z90.49 Acquired absence of other specified parts of digestive tract
CPT/HCPCS: 74177; 96361; 96374; 96375; 99285; J2405; Q9967

== ENCOUNTER → 2017-06-29 | Outpatient (CLI) | payer OTHER, MEDICAID | LOC: FIMAGING 13:58 | PROVIDERS: ATTEND Midwife | DX: R10.2 Pelvic and perineal pain (principal); D25.1 Intramural leiomyoma of uterus; N83.202 Unspecified ovarian cyst, left side; Z97.5 Presence of (intrauterine) contraceptive device ==

== ENCOUNTER → 2017-09-09 | Outpatient (CLI) | payer OTHER, MEDICAID | LOC: FIMAGING 10:01 | PROVIDERS: ATTEND Midwife | DX: N83.201 Unspecified ovarian cyst, right side (principal); D25.2 Subserosal leiomyoma of uterus; Z97.5 Presence of (intrauterine) contraceptive device ==

== ENCOUNTER 2018-01-22 05:33 | Emergency (ER) | payer OTHER, MEDICAID ==
[2018-01-22] MEDS ORDERED: NS 1,000 ML IV ONE ×2 (05:53→05:58)
--- NOTE | 2018-01-22 05:53 | EDPHY ---
H & P Stated Complaint: endometrial ablation 12/27/17 having abd pain,fever, and bleeding Source: Patient - Personal History LMP (Females 10-55): Now Current Tetanus/Diphtheria Vaccine: Yes Current Tetanus Diphtheria and Acellular Pertussis (TDAP): Yes Tetanus Vaccine Date: 2 YEARS AGO - Medical/Surgical History Hx Asthma: No Hx Chronic Respiratory Disease: No Hx Diabetes: No Hx Cardiac Disease: No Hx Renal Disease: No Hx Cirrhosis: No Hx Alcoholism: No Hx HIV/AIDS: No Hx Splenectomy or Spleen Trauma: No Other PMH: INTRACTABLE EPILEPSY, CHOLECYSTECTOMY,endometrial ablation - Social History Smoking Status: Former smoker Time Seen by Provider: 01/22/18 05:53 HPI/ROS: HPI CHIEF COMPLAINT: Abdominal pain, vaginal bleeding, fever, recent endometrial ablation HISTORY OF PRESENT ILLNESS: Very pleasant 47-year-old female, had endometrial ablation she thinks about [address] [facility] by Dr. Ojeda. She presents emergency room with lower abdominal pain, urinary frequency, fever, and nausea started around 3:00 a.m. This morning. She also had some vaginal bleeding. States bright red blood. And now some clots. Denies chest pain shortness of breath. She reports she had a fever at home. [place] nauseous. Did all the symptoms decided come the emergency room. Additionally place roldan complains of low back pain. Past Medical History: Significant past medical history for fibromyalgia, constipation Past Surgical History: Recent endometrial ablation 3 weeks ago. Social History: Denies daily use of drugs alcohol tobacco Family History: Noncontributory ROS REVIEW OF SYSTEMS: 10 Systems were reviewed and negative with the exception of the elements mentioned in the history of present illness. Exam Constitutional nontoxic appearing triage nursing summary reviewed, vital signs reviewed, awake/alert. Noted be febrile at triage. Eyes normal conjunctivae and sclera, EOMI, PERRLA. HENT normal inspection, atraumatic, moist mucus membranes, no epistaxis, neck supple/ no meningismus, no raccoon eyes. Respiratory clear to auscultation bilaterally, normal breath sounds, no respiratory distress, no wheezing. Cardiovascular rate normal, regular rhythm, no murmur, no edema, distal pulses normal. Gastrointestinal mild tender palpation suprapubic and low pelvic bilaterally,, no rebound, no guarding, normal bowel sounds, no distension, no pulsatile mass. Genitourinary no CVA tenderness. Musculoskeletal no midline vertebral tenderness, full range of motion, no calf swelling, no tenderness of extremities, no meningismus, good pulses, neurovascularly intact. Skin pink, warm, & dry, no rash, skin atraumatic. Neurologic awake, alert and oriented x 3, AAOx3, moves all 4 extremities equally, motor intact, sensory intact, CN II-XII intact, normal cerebellar, normal vision, normal speech. Psychiatric normal mood/affect. Heme/Lymph/Immune no lymphadenopathy. Differential diagnosis includes but is not limited to and in no particular order : Pyelonephritis, Endometrial infection, endometritis, Bowel obstruction, appendicitis, gallbladder disease, diverticulitis, colitis, enteritis, perforated viscus, gastritis, GERD, esophagitis, urinary tract infection, pyelonephritis, kidney stones Medical Decision Making: Plan for this patient IV establishment with IV fluid bolus 2 L normal saline, check basic blood work CBC and lactic acid, Tylenol for fever control, Toradol for pain control. Check UA. Re-evaluation: Patient here with fever, urinalysis indicating UTI, and lower pelvic pain. Additionally blood work reviewed shows she has elevated white count. Urine culture be sent. Patient will see 1 g Rocephin Patient need to be monitored closely in the hospital today. Lactic acid pending. 0716: Ultrasound of the pelvis shows a heterogeneous fluid collection in the lower uterine segment 2.2 x 1.8 x 2.0 in size. Given this patient's fever, lower pelvic pain, urinary tract infection plan will be for IV antibiotic. Additionally I will consult OBGYN. 0725AM: Spoke with Dr. Nury Moscoso, Who Will come and see and evaluate the patient. Signed Over to Dr. Patel, Pending Dr. Moscoso's eval. ([facility]) Constitutional: Initial Vital Signs Temperature (C) 38.6 C H 01/22/18 05:35 Heart Rate 89 01/22/18 05:35 Respiratory Rate 16 01/22/18 05:35 Blood Pressure 108/64 01/22/18 05:35 O2 Sat (%) 93 01/22/18 05:35 O2 Delivery Mode Room Air Allergies/Adverse Reactions: lamotrigine [From Lamictal] Allergy (Severe, Verified 01/22/18 08:09) Other-Enter Comments divalproex sodium [From Depakote] Allergy (Mild, Verified 01/22/18 08:09) Hives oxcarbazepine [From Trileptal] Allergy (Mild, Verified 01/22/18 08:09) Other-Enter Comments Penicillins Allergy (Mild, Verified 01/22/18 08:09) Swelling/neck,face,throat Tricyclic Compounds Allergy (Unknown, Verified 01/22/18 08:09) Other-Enter Comments Home Medications: Medication Instructions Recorded levETIRAcetam [Levetiracetam] 2,000 mg PO DAILY@09/09/09 Vilazodone HCl [Viibryd] 20 mg PO DAILY 12/15/16 busPIRone [Buspar (*)] 10 mg PO DAILY@12/15/16 Doxycycline Hyclate 100 mg PO BID #20 tab 01/22/18 Metronidazole 500 mg PO BID #20 tablet 01/22/18 Pregabalin 225 mg PO DAILY@,01/22/18 Vilazodone HCl [Viibryd] 40 mg PO DAILY 01/22/18 Medical Decision Making Other Provider: 0730 care assumed by me from Dr. Francis pending OBGYN consultation. 0900 patient seen by DEIDRE Palma. She does not feel the patient requires admission at this time. Symptoms consistent possibly with the mild pelvic inflammatory disease or early UTI. She would like to continue with doxycycline and Flagyl. She is sent cultures. Patient will follow up with her OBGYN or Dr. Moscoso in the next 24-48 hours. (Elan Patel) - Data Points Laboratory Results: Laboratory Results 01/22/18 05:15 01/22/18 05:15 01/22/18 01/22/18 01/22/18 06:45 06:10 05:15 WBC RBC Hgb Hct MCV MCH MCHC RDW Plt Count MPV Neut % (Auto) Lymph % (Auto) [place] % (Auto) Eos % (Auto) Baso % (Auto) Nucleat RBC Rel Count Absolute Neuts (auto) Absolute Lymphs (auto) Absolute Monos (auto) Absolute Eos (auto) Absolute Basos (auto) Absolute Nucleated RBC Immature Gran % Immature Gran # VBG Lactic Acid 0.5 mmol/L L mmol/L (0.7-2.1) Sodium Potassium Chloride Carbon Dioxide Anion Gap BUN Creatinine Estimated GFR Glucose Calcium Total Bilirubin Conjugated Bilirubin Unconjugated Bilirubin AST ALT Alkaline Phosphatase Total Protein Albumin Lipase Beta HCG, Qual NEGATIVE Urine Color TERRI Urine Appearance CLEAR Urine pH 8.0 H (5.0-7.5) Ur Specific [place] 1.004 (1.002-1.030) Urine Protein 1+ H (NEGATIVE) Urine Ketones NEGATIVE (NEGATIVE) Urine Blood 3+ H (NEGATIVE) Urine Nitrate NEGATIVE (NEGATIVE) Urine Bilirubin NEGATIVE (NEGATIVE) Urine Urobilinogen NEGATIVE EU EU (0.2-1.0) Ur Leukocyte Esterase 1+ H (NEGATIVE) Urine RBC 25-50 /hpf H /hpf (0-3) Urine WBC 5-10 /hpf H /hpf (0-3) Ur Epithelial Cells TRACE /lpf /lpf (NONE-1+) Urine Bacteria TRACE /hpf H /hpf (NONE SEEN) Urine Mucus TRACE /lpf /lpf (NONE-1+) Urine Glucose NEGATIVE (NEGATIVE) 01/22/18 01/22/18 05:15 05:15 WBC 15.68 10^3/uL H 10^3/uL (3.80-9.50) RBC 3.79 10^6/uL L 10^6/uL (4.18-5.33) Hgb 11.1 g/dL L g/dL (12.6-16.3) Hct 33.0 % L % (38.0-47.0) MCV 87.1 fL fL (81.5-99.8) MCH 29.3 pg pg (27.9-34.1) MCHC 33.6 g/dL g/dL (32.4-36.7) RDW 13.1 % % (11.5-15.2) Plt Count 235 10^3/uL 10^3/uL (150-400) MPV 9.2 fL fL (8.7-11.7) Neut % (Auto) 91.0 % H % (39.3-74.2) Lymph % (Auto) 4.0 % L % (15.0-45.0) [place] % (Auto) 4.0 % L % (4.5-13.0) Eos % (Auto) 0.4 % L % (0.6-7.6) Baso % (Auto) 0.2 % L % (0.3-1.7) Nucleat RBC Rel Count 0.0 % % (0.0-0.2) Absolute Neuts (auto) 14.28 10^3/uL H 10^3/uL (1.70-6.50) Absolute Lymphs (auto) 0.62 10^3/uL L 10^3/uL (1.00-3.00) Absolute Monos (auto) 0.63 10^3/uL 10^3/uL (0.30-0.80) Absolute Eos (auto) 0.06 10^3/uL 10^3/uL (0.03-0.40) Absolute Basos (auto) 0.03 10^3/uL 10^3/uL (0.02-0.10) Absolute Nucleated RBC 0.00 10^3/uL 10^3/uL (0-0.01) Immature Gran % 0.4 % % (0.0-1.1) Immature Gran # 0.06 10^3/uL 10^3/uL (0.00-0.10) VBG Lactic Acid Sodium 138 mEq/L mEq/L (135-145) Potassium 3.6 mEq/L mEq/L (3.3-5.0) Chloride 105 mEq/L mEq/L (97-110) Carbon Dioxide 23 mEq/l mEq/l (22-31) Anion Gap 10 mEq/L mEq/L (8-16) BUN 7 mg/dL mg/dL (7-23) Creatinine 0.6 mg/dL mg/dL (0.6-1.0) Estimated GFR > 60 Glucose 106 mg/dL H mg/dL (70-100) Calcium 8.7 mg/dL mg/dL (8.5-10.4) Total Bilirubin 0.6 mg/dL mg/dL (0.1-1.4) Conjugated Bilirubin 0.0 mg/dL mg/dL (0.0-0.5) Unconjugated Bilirubin 0.6 mg/dL mg/dL (0.0-1.1) AST 24 IU/L IU/L (14-46) ALT 31 IU/L IU/L (9-52) Alkaline Phosphatase 83 IU/L IU/L (38-126) Total Protein 6.6 g/dL g/dL (6.3-8.2) Albumin 4.0 g/dL g/dL (3.5-5.0) Lipase 99 IU/L IU/L (23-300) Beta HCG, Qual Urine Color Urine Appearance Urine pH Ur Specific [place] Urine Protein Urine Ketones Urine Blood Urine Nitrate Urine Bilirubin Urine Urobilinogen Ur Leukocyte Esterase Urine RBC Urine WBC Ur Epithelial Cells Urine Bacteria Urine Mucus Urine Glucose Medications Given: Discontinued Medications Acetaminophen (Tylenol) 1,000 mg PO EDNOW ONE Stop: 01/22/18 05:55 Last Admin: 01/22/18 06:15 Dose: 1,000 mg Sodium Chloride (Ns) 1,000 mls @ 0 mls/hr IV EDNOW ONE; Wide Open PRN Reason: Protocol Stop: 01/22/18 05:54 Last Admin: 01/22/18 06:13 Dose: 1,000 mls Sodium Chloride (Ns) 1,000 mls @ 0 mls/hr IV ONCE ONE PRN Reason: Wide Open Stop: 01/22/18 05:59 Last Admin: 01/22/18 06:16 Dose: 1,000 mls Ceftriaxone Sodium/Dextrose (Rocephin 1 Gm (Premix)) 50 mls @ 100 mls/hr IV EDNOW ONE PRN Reason: Protocol Stop: 01/22/18 07:09 Last Admin: 01/22/18 06:46 Dose: 50 mls Ketorolac Tromethamine (Toradol) 15 mg IVP EDNOW ONE Stop: 01/22/18 05:59 Last Admin: 01/22/18 06:14 Dose: 15 mg Departure - Departure Disposition: Home, Routine, Self-Care Clinical Impression: PID (pelvic inflammatory disease) Condition: Fair Instructions: Pelvic Inflammatory Disease (ED), Urinary Tract Infection in Women (ED) Additional Instructions: Pelvic rest for 14 days Please come back if you have bleeding in which you are soaking a pad an hour for more than 2 hours in a row. I anticipate you to have bleeding like a period over the next week. Please come back if you have fever more than 24 hours from now. I would anticipate you may have a low grade fever over the next 24 hours. Treat eith ibuprofen and Tylenol. Please come back if you have severe low abdominal pain and/or back pain - worse than the discomfort you are having now. Expect an improvement of your symptoms over the next 24 hours. Please follow up with Dr. Perdomo in 2 -3 days. If you are unable to see Dr. Perdomo, then make an appointment with Dr. Moscoso at [facility] in 2-3 days. Please take the full 10 day course of doxycycline and metronidazole. Diagnoses - post procedure low grade endometritis, and possible urinary tract infection. Referrals: Patient,NotPresent [Unknown] - As per Instructions Prescriptions: Doxycycline Hyclate 100 mg PO BID #20 tab Metronidazole 500 mg PO BID #20 tablet
[2018-01-22] MEDS ORDERED: ACETAMINOPHEN 500 MG TAB PO ONE (05:54)
[2018-01-22] MEDS ORDERED: KETOROLAC 15 MG/1 ML SDV IVP ONE (05:58)
[2018-01-22 06:13] LABS: PLATELET COUNT 235 10^3/uL (150-400)
--- NOTE | 2018-01-22 09:09 | PDCONSULT ---
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 Perdomo in [place] , presents with vaginal bleeding, low abd pain and fever. Pt had been doing well post procedure until about 1 week ago - noticed increased urinary urgency and frequency, worsening over the past 3 days. No dysuria. Vaginal bleeding started 3 d ago, and started passing some clots this morning when she had the pain. LMP 12/24/17 - approx 4 weeks ago, and has a hx of reg menses q mo. This morning -she was awakened with low abd/pelvic pain and low back pain, and noted a fever. Since arrival in the ED, pain has decreased from a 7 of 10 to a 5 of 10. Sexually active in a monogamous relationship with of 15 years. Has not had intercourse since procedure done 3 weeks ago. No unusual or foul smelling vaginal discharge. PMH: epilepsy, fibromyalgia Meds: levETIRAcetam [Levetiracetam] 2,000 mg PO DAILY@09/09/09 [Last Taken 01/21] Vilazodone HCl [Viibryd] 20 mg PO DAILY 12/15/16 [Last Taken Unknown] busPIRone [Buspar (*)] 10 mg PO DAILY@12/15/16 [Last Taken 01/21/18] Pregabalin 225 mg PO DAILY@01/22/18 [Last Taken 01/21/18] Vilazodone HCl [Viibryd] 40 mg PO DAILY 01/22/18 [Last Taken 01/21/18] ALL: Allergy/AdvReac Type Severity Reaction Status Date / Time lamotrigine [From Lamictal] Allergy Severe Other-Enter Verified 01/22/18 08:09 Comments divalproex sodium Allergy Mild Hives Verified 01/22/18 08:09 [From Depakote] oxcarbazepine Allergy Mild Other-Enter Verified 01/22/18 08:09 [From Trileptal] Comments Penicillins Allergy Mild Swelling/ne Verified 01/22/18 08:09 ck,face,thr oat Tricyclic Compounds Allergy Unknown Other-Enter Verified 01/22/18 08:09 Comments PSH: l'scopic cholecystectomy 12/27/17 endometrial ablation Soc: , -/-/- O: Temp Pulse Resp BP Pulse Ox 38.6 C H 87 18 106/64 94 01/22/18 05:35 01/22/18 06:56 01/22/18 06:56 01/22/18 06:56 01/22/18 06:56 gen - pleasant female, NAD HEENT - grossly wnl, no adenopathy CV - RRR chest - CTAB abd - soft, flat, no rebound or guarding, mild tenderness in low abd diffusely pelvic - NEFG vagina - pink, no lesions, some dark red clots present, no active bleeding, suture remnant removed cervix - no lesions, no CMT uterus - AV, mobile, very mild diffuse tenderness adnexa - no masses or tenderness US reviewed - 2cm LEONOR heterogenous area c/w clot, R ov with 2 cm cyst, normal appearing L ov, no free fluid per my review of scan, as official report from radiologist not available yet Labs: WBC 15.68 10^3/uL (3.80-9.50) H 01/22/18 05:15 RBC 3.79 10^6/uL (4.18-5.33) L 01/22/18 05:15 Hgb 11.1 g/dL (12.6-16.3) L 01/22/18 05:15 Hct 33.0 % (38.0-47.0) L 01/22/18 05:15 MCV 87.1 fL (81.5-99.8) 01/22/18 05:15 MCH 29.3 pg (27.9-34.1) 01/22/18 05:15 MCHC 33.6 g/dL (32.4-36.7) 01/22/18 05:15 RDW 13.1 % (11.5-15.2) 01/22/18 05:15 Plt Count 235 10^3/uL (150-400) 01/22/18 05:15 MPV 9.2 fL (8.7-11.7) 01/22/18 05:15 Neut % (Auto) 91.0 % (39.3-74.2) H 01/22/18 05:15 Lymph % (Auto) 4.0 % (15.0-45.0) L 01/22/18 05:15 [place] % (Auto) 4.0 % (4.5-13.0) L 01/22/18 05:15 Eos % (Auto) 0.4 % (0.6-7.6) L 01/22/18 05:15 Baso % (Auto) 0.2 % (0.3-1.7) L 01/22/18 05:15 Nucleat RBC Rel Count 0.0 % (0.0-0.2) 01/22/18 05:15 Absolute Neuts (auto) 14.28 10^3/uL (1.70-6.50) H 01/22/18 05:15 Absolute Lymphs (auto) 0.62 10^3/uL (1.00-3.00) L 01/22/18 05:15 Absolute Monos (auto) 0.63 10^3/uL (0.30-0.80) 01/22/18 05:15 Absolute Eos (auto) 0.06 10^3/uL (0.03-0.40) 01/22/18 05:15 Absolute Basos (auto) 0.03 10^3/uL (0.02-0.10) 01/22/18 05:15 Absolute Nucleated RBC 0.00 10^3/uL (0-0.01) 01/22/18 05:15 Immature Gran % 0.4 % (0.0-1.1) 01/22/18 05:15 Immature Gran # 0.06 10^3/uL (0.00-0.10) 01/22/18 05:15 VBG Lactic Acid 0.5 mmol/L (0.7-2.1) L 01/22/18 06:45 Sodium 138 mEq/L (135-145) 01/22/18 05:15 Potassium 3.6 mEq/L (3.3-5.0) 01/22/18 05:15 Chloride 105 mEq/L (97-110) 01/22/18 05:15 Carbon Dioxide 23 mEq/l (22-31) 01/22/18 05:15 Anion Gap 10 mEq/L (8-16) 01/22/18 05:15 BUN 7 mg/dL (7-23) 01/22/18 05:15 Creatinine 0.6 mg/dL (0.6-1.0) 01/22/18 05:15 Estimated GFR > 60 01/22/18 05:15 Glucose 106 mg/dL (70-100) H 01/22/18 05:15 Calcium 8.7 mg/dL (8.5-10.4) 01/22/18 05:15 Total Bilirubin 0.6 mg/dL (0.1-1.4) 01/22/18 05:15 Conjugated Bilirubin 0.0 mg/dL (0.0-0.5) 01/22/18 05:15 Unconjugated Bilirubin 0.6 mg/dL (0.0-1.1) 01/22/18 05:15 AST 24 IU/L (14-46) 01/22/18 05:15 ALT 31 IU/L (9-52) 01/22/18 05:15 Alkaline Phosphatase 83 IU/L (38-126) 01/22/18 05:15 Total Protein 6.6 g/dL (6.3-8.2) 01/22/18 05:15 Albumin 4.0 g/dL (3.5-5.0) 01/22/18 05:15 Lipase 99 IU/L (23-300) 01/22/18 05:15 Beta HCG, Qual NEGATIVE 01/22/18 05:15 Urine Color TERRI 01/22/18 06:10 Urine Appearance CLEAR 01/22/18 06:10 Urine pH 8.0 (5.0-7.5) H 01/22/18 06:10 Ur Specific [place] 1.004 (1.002-1.030) 01/22/18 06:10 Urine Protein 1+ (NEGATIVE) H 01/22/18 06:10 Urine Ketones NEGATIVE (NEGATIVE) 01/22/18 06:10 Urine Blood 3+ (NEGATIVE) H 01/22/18 06:10 Urine Nitrate NEGATIVE (NEGATIVE) 01/22/18 06:10 Urine Bilirubin NEGATIVE (NEGATIVE) 01/22/18 06:10 Urine Urobilinogen NEGATIVE EU (0.2-1.0) 01/22/18 06:10 Ur Leukocyte Esterase 1+ (NEGATIVE) H 01/22/18 06:10 Urine RBC 25-50 /hpf (0-3) H 01/22/18 06:10 Urine WBC 5-10 /hpf (0-3) H 01/22/18 06:10 Ur Epithelial Cells TRACE /lpf (NONE-1+) 01/22/18 06:10 Urine Bacteria TRACE /hpf (NONE SEEN) H 01/22/18 06:10 Urine Mucus TRACE /lpf (NONE-1+) 01/22/18 06:10 Urine Glucose NEGATIVE (NEGATIVE) 01/22/18 06:10 Imp: 47 yo with presumed low grade post-procedural endometritis and possible UTI. Plan: Already treated with Ceftriaxone for UTI and Rx for 10 d of Metronidazole 500mg bid and Doxycyline 100mg bid. Very thorough dc instructions reviewed - see dc summ/instructions from Dr. Patel - put into his note. FU in 2-[address] Perdomo in [place], or with me at [facility] if unable to get in to see Dr. Perdomo. > 30 min spent face to face, > 50% counseling. Nury Moscoso MD, FACOG [facility]
[2018-01-22 09:17] VITALS: BP 125/78
== END 2018-01-22 09:17 | disposition home or self-care (01) ==
DX: N73.9 Female pelvic inflammatory disease, unspecified (principal); N71.0 Acute inflammatory disease of uterus
CPT/HCPCS: 76856; 96361; 96365; 96375; 99285; J0696; J1885